=== PATIENT | female | born 1935 | race Caucasian/White ===

== ENCOUNTER → 2017-06-17 | Outpatient (CLI) | payer OTHER, MEDICAID ==
[2015-12-31 14:01] VITALS: BP 117/71
[~2017-06-17] MED LIST: NS 100 ML IV 100 ML IV ONE
[2017-06-17 10:08] LABS: ALANINE AMINOTRANSFERASE 12 Units/L (12-78); ALBUMIN 3.7 g/dL (3.4-5.0); ALKALINE PHOSPHATASE 123 Units/L (46-116); ASPARTATE AMINO TRANSFERASE 18 Units/L (15-37); BLOOD UREA NITROGEN 14 mg/dL (7-18); CALCIUM 9.1 mg/dL (8.5-10.1); CARBON DIOXIDE 28.2 mmol/L (21-32); CHLORIDE 104 mmol/L (98-107); CREATININE 0.95 mg/dL (0.55-1.02); SODIUM 139 mmol/L (136-145); TOTAL PROTEIN 7.2 g/dL (6.4-8.2); eGFR BLACK RACES > 60 (>60); eGFR NON BLACK RACES > 60 (>60)
--- NOTE | 2017-06-17 13:50 | CT ---
Indication: Hiatal hernia with pain. Exam: CT abdomen and pelvis with contrast. Technique: Axial spiral images were obtained from lung bases through the pubic symphysis after admini stration 96 cc Omnipaque 350 and oral contrast. Automated dose control was utilized. Findings: There is a probable moderate-sized paraesophageal hernia along the lower mediastinum. The l iver and spleen are normal size and density. The gallbladder has been removed with slight prominence of the common bile duct proximally which tapers distally with no filling defects and is unchanged. Th e pancreas and adrenals are normal. The kidneys are normal size and function normally with no hydrone phrosis or renal stones. There is a 1.8 cm cyst along the lower pole the right. The ureters are enrico l caliber. No adenopathy or ascites is seen. The appendix is not well visualized and there is no rashel cecal inflammation. There is a 2.3 cm fascial defect along the right inguinal region with a small loo p of ascending colon extending into the inguinal hernia which appears normal caliber with no wall thi ckening. There is moderate fat density in the left inguinal region with no bowel loops in the area. T he uterus has been removed. There is no adnexal mass. There are numerous diverticula throughout the s igmoid colon with no pericolonic inflammation. There is no bowel obstruction. There is a 1 cm fascial defect along the umbilical region with no bowel loops in the area. Moderate degenerative changes are seen in the spine with no aggressive osseous lesion. Impression: Probable moderate paraesophageal hiatal hernia . Suggest an upper GI series for further evaluation, i f indicated clinically . Status post cholecystectomy with no acute intra-abdominal abnormality seen. 2.3 cm right inguinal hernia with a small loop of ascending colon extending into the hernia which william ears normal caliber with no bowel obstruction or wall thickening seen. Probable small left left inguinal hernia with no bowel loops in the area. Small umbilical hernia. Small right renal cyst. Status post hysterectomy with no pelvic mass. Moderate diverticulosis along the sigmoid colon with no pericolonic inflammation. Reported By:
== END ==
LOC: RAD 09:22
PROVIDERS: ATTEND Internal Medicine
DX: K44.9 Diaphragmatic hernia without obstruction or gangrene (principal); D64.89 Other specified anemias; Q61.8 Other cystic kidney diseases
CPT/HCPCS: 36415; 74177; 80053; A4222

== ENCOUNTER 2018-06-08 15:49 | Observation (INO) ==
[2018-06-08 16:11] VITALS: BMI 29.7
[2018-06-08 16:48] LABS: BASOPHILS % (AUTO) 0.8 % (0.2-1.0); EOSINOPHILS % (AUTO) 0.8 % (0.9-2.9); HEMATOCRIT 35.7 % (36.0-47.0); HEMOGLOBIN 12.2 g/dL (12.0-16.0); LYMPHOCYTES # (AUTO) 1.9 X10^3/uL (1.3-2.9); LYMPHOCYTES % (AUTO) 31.7 % (21.0-51.0); MEAN CORPUSCULAR HEMOGLOBIN 31.8 pg (27.0-34.0); MEAN CORPUSCULAR HGB CONC 34.2 g/dL (33.0-35.0); MEAN PLATELET VOLUME 9.8 fL (7.4-11.0); MONOCYTES # (AUTO) 0.8 x10^3/uL (0.3-0.8); MONOCYTES % (AUTO) 13.9 % (0.0-13.0); NEUTROPHILS # (AUTO) 3.2 x10^3/uL (2.2-4.8); NEUTROPHILS % (AUTO) 52.8 % (42.0-75.0); PLATELET COUNT 246 X10^3/uL (150.0-450.0); RED BLOOD COUNT 3.84 X10^6/uL (3.5-5.4); RED CELL DISTRIBUTION WIDTH 15.5 % (11.6-16.5)
--- NOTE | 2018-06-08 16:51 | RAD ---
HISTORY: Chest pain Study: Single view chest Comparison:None Findings: Single upright portable view is submitted. There is a large hiatal hernia with intrathoracic stomach No infiltrate, effusion or pneumothorax identified. The cardiac and mediastinal contours are within normal limits. The soft tissues are unremarkable. IMPRESSION: 1. No acute cardiopulmonary abnormality. 2. Large hiatal hernia. Reported By:
[2018-06-08 17:00] LABS: ALANINE AMINOTRANSFERASE 17 Units/L (12-78); ALBUMIN 3.7 g/dL (3.4-5.0); ALKALINE PHOSPHATASE 123 Units/L (46-116); ASPARTATE AMINO TRANSFERASE 17 Units/L (15-37); BLOOD UREA NITROGEN 13 mg/dL (7-18); CARBON DIOXIDE 25.4 mmol/L (21-32); CHLORIDE 102 mmol/L (98-107); CREATININE 0.94 mg/dL (0.55-1.02); SODIUM 137 mmol/L (136-145); TOTAL PROTEIN 6.9 g/dL (6.4-8.2); eGFR NON BLACK RACES > 60 (>60)
[2018-06-08 17:15] LABS: CKMB % 7.7 % (<4); CREATINE KINASE 17 Units/L (26-192); CREATINE KINASE MB 1.3 ng/mL (0-4.0); TROPONIN I < 0.02 ng/mL (0-1.5)
--- NOTE | 2018-06-08 17:28 | DR.CP ---
HPI Time Seen Time Seen by Provider: 06/08/18 16:49 PCP Primary Care Physician: DENNY Slater Chief Complaint:: PT C/O CHEST PAIN SUBSTERNAL THAT STARTED APPROX X 1 HOUR AGO. PT STATES UPON ARRIVAL TO THE ED PT'S PAIN LEVEL IS DOWN TO A 1. PT STATES SHE WAS NOT ADMINISTERED ANY MEDICATIONS. SHE STATES SHE WAS SITTING IN HER [place]YNER WHEN HER PAIN STARTED AND HER BLOOD PRESSURE CONT TO INCREASE WITH EACH CHECK AT HOME PER SON. Source History Provided: Patient Mode of Arrival Mode of Arrival: EMS Timing Onset of Chief Complaint: 06/08/18 PMH PMH Past Medical History: Yes Past Medical History: Dyslipidemia, GERD and Hypertension Past Surgical History: Yes Surgical History: Cholecystectomy and Hysterectomy Family History History of Family Medical Conditions: Yes Family Medical History: Cancer and Coronary Artery Disease Social History Does any household member use tobacco: No Alcohol Use: None Do you use any recreational Drugs:: No Lives With: Family Lives Where: Home infectious screening In the last 2 months have you had wt loss of >10#?: NO Have you had fever, night sweats or hemotysis?: No Have you traveled outside the country in the last 6 months?: No Isolation: Standard PE Vitals Vitals: Temperature 97.6 F Pulse Rate 71 Respiratory Rate 23 Blood Pressure 159/76 O2 Sat by Pulse Oximetry 98 ROR Labs Reviewed Result Diagrams: 06/08/18 16:38 06/08/18 16:38 Laboratory: WBC 6.0 X10^3/uL (3.6-10.0) 06/08/18 16:38 RBC 3.84 X10^6/uL (3.5-5.4) 06/08/18 16:38 Hgb 12.2 g/dL (12.0-16.0) 06/08/18 16:38 Hct 35.7 % (36.0-47.0) L 06/08/18 16:38 MCV 93.0 fL (80.0-100.0) 06/08/18 16:38 MCH 31.8 pg (27.0-34.0) 06/08/18 16:38 MCHC 34.2 g/dL (33.0-35.0) 06/08/18 16:38 RDW 15.5 % (11.6-16.5) 06/08/18 16:38 Plt Count 246 X10^3/uL (150.0-450.0) 06/08/18 16:38 MPV 9.8 fL (7.4-11.0) 06/08/18 16:38 Neut % (Auto) 52.8 % (42.0-75.0) 06/08/18 16:38 Lymph % (Auto) 31.7 % (21.0-51.0) 06/08/18 16:38 Deuel % (Auto) 13.9 % (0.0-13.0) H 06/08/18 16:38 Eos % (Auto) 0.8 % (0.9-2.9) L 06/08/18 16:38 Baso % (Auto) 0.8 % (0.2-1.0) 06/08/18 16:38 Neut # (Auto) 3.2 x10^3/uL (2.2-4.8) 06/08/18 16:38 Lymph # (Auto) 1.9 X10^3/uL (1.3-2.9) 06/08/18 16:38 Deuel # (Auto) 0.8 x10^3/uL (0.3-0.8) 06/08/18 16:38 Eos # (Auto) 0.0 x10^3/uL (0.0-0.2) 06/08/18 16:38 Baso # (Auto) 0.0 X10^3/uL (0.0-0.1) 06/08/18 16:38 Absolute Nucleated RBC 0.0 /100WBC 06/08/18 16:38 INR Target Range - 06/08/18 16:38 INR 0.90 (0.8-1.3) 06/08/18 16:38 APTT 26.9 SECONDS (22.9-36.5) 06/08/18 16:38 PTT Comment - 06/08/18 16:38 D-Dimer 285 ng/mL (0-400) 06/08/18 16:38 Sodium 137 mmol/L (136-145) 06/08/18 16:38 Corrected Sodium TNP 06/08/18 16:38 Potassium 4.1 mmol/L (3.5-5.1) 06/08/18 16:38 Chloride 102 mmol/L (98-107) 06/08/18 16:38 Carbon Dioxide 25.4 mmol/L (21-32) 06/08/18 16:38 BUN 13 mg/dL (7-18) 06/08/18 16:38 Creatinine 0.94 mg/dL (0.55-1.02) 06/08/18 16:38 Est GFR (MDRD) Af Amer > 60 (>60) 06/08/18 16:38 Est GFR (MDRD) Non-Af > 60 (>60) 06/08/18 16:38 Glucose 86 mg/dL (65-99) 06/08/18 16:38 Calcium 9.0 mg/dL (8.5-10.1) 06/08/18 16:38 Corrected Calcium TNP 06/08/18 16:38 Magnesium 2.0 mg/dL (1.7-2.9) 06/08/18 16:38 Total Bilirubin 0.20 mg/dL (0.2-1.0) 06/08/18 16:38 AST 17 Units/L (15-37) 06/08/18 16:38 ALT 17 Units/L (12-78) 06/08/18 16:38 Alkaline Phosphatase 123 Units/L (46-116) H 06/08/18 16:38 Creatine Kinase 17 Units/L (26-192) L 06/08/18 16:38 CK-MB (CK-2) 1.3 ng/mL (0-4.0) 06/08/18 16:38 CK/CKMB % Calc 7.7 % (<4) 06/08/18 16:38 Troponin I < 0.02 ng/mL (0-1.5) 06/08/18 16:38 Total Protein 6.9 g/dL (6.4-8.2) 06/08/18 16:38 Albumin 3.7 g/dL (3.4-5.0) 06/08/18 16:38 Globulin 3.2 g/dL (2.5-4.5) 06/08/18 16:38 Albumin/Globulin Ratio 1.2 Ratio (1.1-2.1) 06/08/18 16:38
[2018-06-08] MEDS ORDERED: PATIENT'S HOME MEDICATION (Solifenacin [Vesicare] 5 MG) PO SCH (18:15)
[2018-06-08] MEDS ORDERED: NS 1000 ML 1,000 ML ONE (18:20)
[2018-06-08] MEDS: NS 1000 ML 1,000 ML IV SCH (18:45)
[2018-06-08] MEDS ORDERED: KLONOPIN TAB 0.5 MG PO SCH (21:00)
[2018-06-08] MEDS ORDERED: ZOCOR TAB 20 MG PO SCH (21:00)
[2018-06-08] MEDS ORDERED: PEPCID 20 MG IV PREMIX* 20 MG/50 ML BAG IV SCH (21:00)
[2018-06-08] MEDS ORDERED: PEPCID 20 MG IV PREMIX* 20 MG/50 ML BAG IV ONE (21:02)
[2018-06-08] MEDS: VOLTAREN 1 % GEL MULTI DOSE TUBE TOP SCH (21:49)
[2018-06-08 23:18] LABS: CKMB % 6.7 % (<4); CREATINE KINASE 15 Units/L (26-192); TROPONIN I < 0.02 ng/mL (0-1.5)
[2018-06-09] MEDS: VOLTAREN 1 % GEL MULTI DOSE TUBE TOP SCH (05:44)
[2018-06-09] MEDS: NS 1000 ML 1,000 ML IV SCH (06:22)
[2018-06-09 06:41] LABS: BASOPHILS # (AUTO) 0.1 X10^3/uL (0.0-0.1); EOSINOPHILS # (AUTO) 0.1 x10^3/uL (0.0-0.2); EOSINOPHILS % (AUTO) 0.9 % (0.9-2.9); HEMATOCRIT 31.8 % (36.0-47.0); HEMOGLOBIN 10.8 g/dL (12.0-16.0); LYMPHOCYTES # (AUTO) 1.8 X10^3/uL (1.3-2.9); LYMPHOCYTES % (AUTO) 26.3 % (21.0-51.0); MEAN CORPUSCULAR HEMOGLOBIN 31.4 pg (27.0-34.0); MEAN CORPUSCULAR HGB CONC 33.9 g/dL (33.0-35.0); MEAN CORPUSCULAR VOLUME 92.8 fL (80.0-100.0); MEAN PLATELET VOLUME 10.5 fL (7.4-11.0); MONOCYTES # (AUTO) 1.1 x10^3/uL (0.3-0.8); MONOCYTES % (AUTO) 15.4 % (0.0-13.0); NEUTROPHILS # (AUTO) 3.9 x10^3/uL (2.2-4.8); NEUTROPHILS % (AUTO) 56.4 % (42.0-75.0); PLATELET COUNT 215 X10^3/uL (150.0-450.0); RED BLOOD COUNT 3.43 X10^6/uL (3.5-5.4); RED CELL DISTRIBUTION WIDTH 14.9 % (11.6-16.5); WHITE BLOOD COUNT 6.9 X10^3/uL (3.6-10.0)
[2018-06-09 07:18] LABS: ALANINE AMINOTRANSFERASE 15 Units/L (12-78); ALBUMIN 3.1 g/dL (3.4-5.0); ALKALINE PHOSPHATASE 106 Units/L (46-116); ASPARTATE AMINO TRANSFERASE 16 Units/L (15-37); BLOOD UREA NITROGEN 14 mg/dL (7-18); CALCIUM 8.5 mg/dL (8.5-10.1); CHLORIDE 104 mmol/L (98-107); CHOL/HDL RATIO 2.6 (0.0-5.0); CHOLESTEROL 139 mg/dL (0-200); COR CA(FOR HYPOALB) 9.2 mg/dL (8.5-10.1); CREATINE KINASE 20 Units/L (26-192); CREATINE KINASE MB < 1.0 ng/mL (0-4.0); CREATININE 0.93 mg/dL (0.55-1.02); HDL CHOLESTEROL 54 mg/dL (40-60); SODIUM 140 mmol/L (136-145); TRIGLYCERIDES 79 mg/dL (0-150); TROPONIN I < 0.02 ng/mL (0-1.5); eGFR NON BLACK RACES > 60 (>60)
[2018-06-09] MEDS ORDERED: TYLENOL 325 MG TAB PO PRN (07:34)
[2018-06-09] MEDS ORDERED: TAB-A-VITE PO SCH (09:00)
[2018-06-09] MEDS ORDERED: CELEXA PO SCH (09:00)
[2018-06-09] MEDS ORDERED: LOVAZA PO SCH (09:00)
[2018-06-09] MEDS ORDERED: DETROL LA 2 MG CAP EXT REL PO SCH (09:00)
[2018-06-09] MEDS ORDERED: PriLOSEC PO SCH (09:00)
[2018-06-09] MEDS ORDERED: OMEGA DHA EPA FISH OIL PO SCH (09:00)
[2018-06-09] MEDS ORDERED: COZAAR PO SCH (09:00)
[2018-06-09] MEDS ORDERED: VITAMINS A C E ZINC COPPER PO SCH (09:00)
[2018-06-09] MEDS ORDERED: FIORICET TAB PO PRN (09:55)
[2018-06-09 12:11] VITALS: BP 146/66
[2018-06-09] MEDS ORDERED: PEPCID 20 MG IV PREMIX* 10 MG/25 ML BAG IV SCH (21:00)
--- NOTE | 2018-06-21 20:21 | DR.CARTERS ---
Short Stay Summary - Admission Date Date of Admission: 06/08/18 - Discharge Date Discharge Date: 06/09/18 - Admission Diagnoses (1) Chest pain, rule out acute myocardial infarction Status: Acute - Hospital Course Hospital Course: IS A 82 YEAR OLD PATIENT OF OURS WHO PRESENTED TO THE EMERGENCY ROOM WITH COMPLAINTS OF SUBSTERNAL CHEST PAIN THAT STARTED APPROXIMATELY ONE HOUR PRIOR TO ARRIVAL. ON ARRIVAL, SHE RATED THE PAIN A 1/10. SHE DENIED STRENUOUS ACTIVITY PRIOR TO ONSET OF PAIN. SHE REPORTED THAT HER BLOOD PRESSURE STEADILY GOT HIGHER AFTER PAIN STARTED. ON ARRIVAL, VITALS WERE 97.6-71-22-99%-217/86. LABS WERE OBTAINED. ABNORMAL LAB VALUES INCLUDE THE FOLLOWING: HCT 35.7, CREATINE KINASE 17, ALK PHOS 123. CHEST XRAY OBTAINED AND REVEALED: No acute cardiopulmonary abnormality. Large hiatal hernia. EKG REVEALED: SINUS RHYTHM WITH HR 70. SHE WAS GIVEN PEPCID 20MG IV X 1 DOSE AND STARTED ON NORMAL SALINE AT 30ML/HR. SHE WAS ADMITTED FOR FURTHER EVALUATION AND TREATMENT OF CHEST PAIN, RULE OUT ACUTE TX. WE PLANNED TO OBTAIN SERIAL CARDIAC ENZYMES AND EKGS WELL FOLLOW UP WITH AM LABS AND CONTINUE TO MONITOR. ON THE MORNING FOLLOWING ADMISSION, PATIENT IS ALERT AND ORIENTED AND REPORTS FEELING WELL. SHE DENIES CHEST PAIN THIS MORNING, BUT DOES REPORT SHORTNESS OF BREATH AT TIMES. PATIENTS REPORTS THAT SHE OFTEN HAS PERIODS OF APNEA AT NIGHT. SHE STATES THAT SHE HAS A CPAP BUT CANT STAND TO WEAR IT. HER VITALS THIS MORNING ARE 98.3-63-22-98%-170/67. CARDIAC ENZYMES AND EKGS WITHIN NORMAL LIMITS. FASTING LIPID PANEL IS NORMAL. WE OBTAINED AN ECHO WHICH REVEALED AN EJECTION FRACTION OF 59%, E/A REVERSAL. WE PLANNED FOR DISCHARGE. INSTRUCTIONS FOR MEDICATIONS AND FOLLOW UP WERE DISCUSSED WITH PATIENT AND FAMILY. THEY VERBALIZED UNDERSTANDING. SHE WAS DISCHARGED ON ASPIRIN 325MG PO DAILY AND AMLODIPINE 5MG PO HS. SHE WAS ALSO INSTRUCTED TO CONTINUE HER PREVIOUSLY PRESCRIBED MEDICATIONS. SHE WAS INSTRUCTED TO FOLLOW UP WITH US IN THE OFFICE IN 1 WEEK. WE WILL SCHEDULE HER FOR OUTPATIENT CARDIAC STRESS TEST AND A SLEEP STUDY. PATIENT WAS DISCHARGED HOME IN STABLE CONDITION. - Discharge Medications Discharge Medications: Home Medication List diclofenac sodium 1 applic TOPICAL Q12H 06/08/18 [History] amlodipine 5 mg PO HS #30 tab 06/09/18 [Rx] aspirin [Ecotrin] 325 mg PO QDAY #100 tab 06/09/18 [Rx] calcium carbonate-vitamin D3 [Caltrate with Vitamin D3] 1 tab PO QDAY 06/09/18 [History] Prescriptions: amlodipine Saul Eduardo aspirin [Ecotrin] Saul Eduardo - Discharge Plan Disposition: HOME, SELF-CARE Condition: Stable Prescriptions: amlodipine 5 mg PO HS #30 tab aspirin [Ecotrin] 325 mg PO QDAY #100 tab - Follow up/Referrals Follow up/Referrals: TEE BARRETT [Primary Care Provider] - 06/16/18 9:40 am - Instructions Instructions: Fall Prevention in the Home, [id number], Form - Blood Pressure Record Sheet, Nonspecific Chest Pain, [id number], Hypertension, [id number], Managing Your Hypertension Additional Instructions: DIET TOLERATED. ACTIVITY TOLERATED. SET UP OUTPATIENT OVERNIGHT PULSE OX. Forms: Patient Portal
== END 2018-06-09 13:35 | disposition home or self-care (01) ==
LOC: ER 15:49 → ICU 15:49
PROVIDERS: ADMIT Internal Medicine; ATTEND Internal Medicine
CPT/HCPCS: 36415; 71010; 71045; 80053; 80061; 82550; 82553; 83735; 84484; 85025; 85378; 85610; 85730; 93005; 93306; 96365; 99282; 99284; A4222; S0028; G0378; J7030